=== PATIENT | female | born 1995 | race African-American/Black ===

== ENCOUNTER 2016-10-17 17:59 | Emergency (ER) | payer MEDICAID ==
[~2016-10-17 17:59] MED LIST: MACR100C PO; MACR100C2 PO; METR-1 PO
[2016-10-17 18:29] VITALS: BP 114/57; PULSE 113
[2016-10-17 18:30] VITALS: RESP 20; TEMP 98.9
--- NOTE | 2016-10-17 18:57 | PD ---
HPI Chief Complaint Diarrhea Travel History International Travel<30 Days: No Contact w/Intl Traveler<30Days: No History of Present Illness HPI 21 yo @ 35w2d with STAN 11-19-2016. care with [facility]. Reports uncomplicated . Patient presents with c/o diarrhea for 5 days. Her one year old son had loose stools and is now doing better. She has had decreased appetite with limited oral intake today. She has some back pain and abdominal cramping with loose stools about 5/day occasionally watery. She missed her appointment at the [facility] clinic today and presents for evaluation. No VB, LOF, urinary symptoms. +FM History Past Medical History Narrative Medical MRSA 2009 ETOH abuse/intoxication ETOH related seizure Anxiety STD GC 2012 Tattoo Obstetric History Obstetric History for breech 2013 repeat 2014 SAB @ 18 weeks Past Surgical History Narrative Surgical Per EMR review: MRSA 2009 ETOH abuse/intoxication ETOH related seizure Anxiety STD 2012 Tattoo (Chantale Cota MD R2) Obstetric History Obstetric History for breech 2013 repeat 2014 SAB @ 18 weeks (Chantale Cota MD R2) 2 Family History Family History: Negative Social History Alcohol Use: No Tobacco Use: No Substance Abuse: No Allergies-Medications (Allergen,Severity, Reaction): Coded Allergies: Percocet (Verified Adverse Reaction, Severe, 02/26/16) pt experiences multiple reactions: severe drowsiness, chest tightness, numbness of extremeties, shaking, difficulty breathing *MDRO Multi-Drug Resistant Organism (Unverified Adverse Reaction, Unknown , 02/26/16) MRSA arm wound 2008. MRSA PCR screen negative 12/27/14 and 12/29/14. Cleared per infection control Home Meds Active Scripts Nitrofurantoin Monohydrate Macrocrystals (Macrobid)100 Mg [id number] Mg PO BID #14 CAP Ref 0 Prov:Chantale Cota MD R2 09/05/16 Metronidazole (Flagyl)500 Mg [id number] Mg PO BID 7 Days TAKE UNTIL GONE Prov:Rhona Barba MD 07/02/16 Nitrofurantoin Monohyd Macro (Macrobid)100 Mg [id number] Mg PO BID #14 CAP Ref 0 Prov:Rhona Barba MD 07/02/16 Review of Systems General / Constitutional: No: Fever, Chills HENT: No: Headaches, Lightheadedness Cardiovascular: No: Chest Pain or Discomfort, Palpitations Respiratory: No: Cough, Short of Breath Gastrointestinal: Diarrhea, Abdominal Pain, Loss of Appetite, No: Vomiting Genitourinary: No: Urgency, Frequency, Dysuria, Discharge, Vaginal Bleeding Musculoskeletal: Cramping, Pain (back pain), No: Limited ROM, Weakness Skin: No Rash, No Itching Neurologic: No: Weakness, Syncope, Focal Abnormalities Physical Exam Narrative GENERAL: Well-nourished, well-developed patient. Appears tired SKIN: Warm and dry. HEAD: Normocephalic and atraumatic. EYES: No scleral icterus. No injection or drainage. ENT: No nasal drainage noted. Mucous membranes pink. Airway patent. NECK: Supple, trachea midline. No JVD. CARDIOVASCULAR: Regular rate RESPIRATORY: No accessory muscle use. ABDOMEN/GI: Abdomen soft, non-tender, no rebound, no guarding Gravid TOCO: Rare UC FHT's: Category: I Baseline: 145 Reactive: +accelerations Variability: mod Decels: [-] EXTREMITIES: No cyanosis or edema. BACK: Nontender without obvious deformity. No CVA tenderness. NEUROLOGICAL: Awake and alert. Motor and sensory grossly within normal limits. . Normal speech. Data Data Vital Signs Reviewed: Yes Orders Vital Signs (Adult) .ON ADMISSION (10/17/16 18:29) ^ Labor Status (10/17/16 18:29) Urinalysis - C+S If Indicated (10/17/16 18:29) ^ Non Stress Test (10/17/16 18:29) ^ Hydration (10/17/16 18:29) Labs Laboratory Tests Test 10/17/16 18:30 Urine Color YELLOW Urine Turbidity CLEAR Urine pH 6.5 Urine Specific [place] 1.007 Urine Protein NEG mg/dL Urine Glucose (UA) 70 mg/dL Urine Ketones NEG mg/dL Urine Occult Blood NEG Urine Nitrite NEG Urine Bilirubin NEG Urine Urobilinogen LESS THAN 2.0 MG/DL Urine Leukocyte Esterase MOD Urine RBC LESS THAN 1 /hpf Urine WBC 2 /hpf Urine Squamous Epithelial 2 /hpf Cells Microscopic Urinalysis Comment CULT NOT INDICATED Vital Signs Date Time Temp Pulse Resp B/P Pulse Ox O2 Delivery O2 Flow Rate FiO2 10/17/16 18:30 98.9 10/17/16 18:30 20 10/17/16 18:29 113 114/57 MDM Narrative Course / MDM CAT I FHT TOCO without regular UC, no evidence of PTL VSS, afebrile UA negative Plan Gastroenteritis, stable Oral hydration, tolerated po fluids and crackers D/c home on bland diet F/u with [facility] tomorrow Diagnosis Diagnosis: Primary Impression: Gastrointestinal symptoms during in third trimester, antepartum Additional Impressions: Gastroenteritis 35 weeks gestation of Disposition: 01 DISCHARGE HOME Condition: Good Rhona Barba MD Oct 17, 2016 18:57
[2016-10-17 20:16] LABS: BLOOD, URINE NEG (NEG); COMMENT (UR) CULT NOT INDICATED; CULTURE IF INDICATED CULT NOT INDICATED; GLUCOSE,URINE 70 mg/dL (NEG); KETONE, URINE NEG (NEG); NITRITE,URINE NEG (NEG); PH, URINE 6.5 (5.0-8.5); SQUAMOUS EPITHELIAL CELL URINE 2 /hpf (0-5); URINE COLOR YELLOW (YELLW/STRAW)
== END 2016-10-17 20:52 | disposition home or self-care (01) ==
LOC: HOBED 17:59
DX: K52.9 Noninfective gastroenteritis and colitis, unspecified (principal); Z3A.35 35 weeks gestation of pregnancy; R10.9 Unspecified abdominal pain
CPT/HCPCS: 59025; 81001; 87641

== ENCOUNTER 2016-11-03 15:06 | Emergency (ER) | payer MEDICAID ==
--- NOTE | 2016-11-03 16:02 | PD ---
HPI Chief Complaint Abdominal cramping Date Seen: Nov 03, 2016 Time Seen: 15:30 Travel History International Travel<30 Days: No Contact w/Intl Traveler<30Days: No Known Affected Area: No History of Present Illness HPI 21-year-old 4 para 2 012 at 37+ weeks gestation who reports mild abdominal cramping. She denies any fever chills, bleeding, vaginal discharge, decreased movement, rupture membranes. She receives care at [facility] which she reports has been uncomplicated during this . Intermittent noncompliance with care is noted. Para: 2 : 4 Miscarriage: 1 (18 week IUFD) History Past Medical History Narrative Medical History of alcohol abuse with alcohol intoxication. None this History of MRSA with negative testing in September 2016 Obstetric History Obstetric History 2 prior C-sections. The first was for breech and the second was elective repeat. She had a third which resulted in a 18 week IUFD which was delivered vaginally Past Surgical History Narrative Surgical 2 Family History Family History: Negative Social History Alcohol Use: Yes (history of alcohol-related seizure prior to this ) Tobacco Use: No Substance Abuse: No Allergies-Medications (Allergen,Severity, Reaction): Coded Allergies: Percocet (Verified Adverse Reaction, Severe, 02/26/16) pt experiences multiple reactions: severe drowsiness, chest tightness, numbness of extremeties, shaking, difficulty breathing *MDRO Multi-Drug Resistant Organism (Unverified Adverse Reaction, Unknown , 02/26/16) MRSA arm wound 2008. MRSA PCR screen negative 12/27/14 and 12/29/14. Cleared per infection control Home Meds Active Scripts Nitrofurantoin Monohydrate Macrocrystals (Macrobid)100 Mg [id number] Mg PO BID #14 CAP Ref 0 Prov:Chantale Cota MD R2 09/05/16 Metronidazole (Flagyl)500 Mg [id number] Mg PO BID 7 Days TAKE UNTIL GONE Prov:Rhona Barba MD 07/02/16 Nitrofurantoin Monohyd Macro (Macrobid)100 Mg [id number] Mg PO BID #14 CAP Ref 0 Prov:Rhona Barba MD 07/02/16 Review of Systems Except as stated in HPI: all other systems reviewed are Neg Physical Exam Narrative GENERAL: Well-nourished, well-developed patient. SKIN: Warm and dry. HEAD: Normocephalic and atraumatic. EYES: No scleral icterus. No injection or drainage. ENT: No nasal drainage noted. Mucous membranes pink. Airway patent. NECK: Supple, trachea midline. No JVD. CARDIOVASCULAR: Regular rate and rhythm without murmurs, gallops, or rubs. RESPIRATORY: Breath sounds equal bilaterally. No accessory muscle use. BREASTS: Bilateral exam showed no masses , no retractions, no nipple discharge. ABDOMEN/GI: Abdomen soft, non-tender, bowel sounds present, no rebound, no guarding Gravid to [-] weeks size Fundal Height: [-40] GENITOURINARY: External Genitalia: intact and normal in appearance BUS glands: [-Negative] Cervix: [-] Dilatation: [Closed-] Effacement: [-Long] Station: [-High] Presentation: [-] Membranes: [intact ] Uterine Contractions: [Irregular mild-] FHT's: Category: [-1] Baseline: [-] Reactive: [Yes-] Variability: [-] Decels: [-] EXTREMITIES: No cyanosis or edema. BACK: Nontender without obvious deformity. No CVA tenderness. NEUROLOGICAL: Awake and alert. Motor and sensory grossly within normal limits. Five out of 5 muscle strength in all muscle groups. Normal speech. Data Data Vital Signs Reviewed: Yes MDM Medical Record Reviewed: Yes Narrative Course / MDM Assessment: 37+ week intrauterine with uterine irritability Plan: Hydration The patient has also missed her preoperative visit for repeat and this was completed today including counseling regarding the risks benefits and alternatives to . She was scheduled for November 13. Diagnosis Diagnosis: Primary Impression: 37 weeks gestation of Additional Impression: Gastrointestinal symptoms during in third trimester, antepartum Disposition: 01 DISCHARGE HOME Brandan Mahoney MD Nov 03, 2016 16:02
--- NOTE | 2016-11-03 16:25 | PD.CONS ---
HPI Chief Complaint consultation Date Seen: Nov 03, 2016 Time Seen: 16:12 Travel History International Travel<30 Days: No Contact w/Intl Traveler<30Days: No Known Affected Area: No History of Present Illness HPI 21-year-old 4 para 2 012 at 37+ weeks gestation who reports having missed her consultation appointment for . She receives care at [facility] which she reports has been uncomplicated during this . Intermittent noncompliance with care is noted. She reports her last menstrual period was early January and states that her due date is the 19 of November. She reports having had an ultrasound in [facility] but she is uncertain where. This information is not recorded on her pink card from [facility]. Para: 2 : 4 Miscarriage: 1 History Past Medical History Narrative Medical History of MRSA with negative nasal testing in September 2016 History of alcohol abuse/intoxication with associated seizure prior to this Obstetric History Obstetric History Her first was delivered by for breech Second was repeat at term Third was 18 week IUFD delivered vaginally Rh+, GC chlamydia negative, rubella immune, HIV and hep B negative, GBS negative , no 1 hour Glucola was performed Past Surgical History Narrative Surgical 2 Family History Family History: Negative Social History Alcohol Use: Yes (prior to this , history of alcohol intoxication associated seizure) Tobacco Use: No Substance Abuse: No Allergies-Medications (Allergen,Severity, Reaction): Coded Allergies: Percocet (Verified Adverse Reaction, Severe, 02/26/16) pt experiences multiple reactions: severe drowsiness, chest tightness, numbness of extremeties, shaking, difficulty breathing *MDRO Multi-Drug Resistant Organism (Unverified Adverse Reaction, Unknown , 02/26/16) MRSA arm wound 2008. MRSA PCR screen negative 12/27/14 and 12/29/14. Cleared per infection control Home Meds Active Scripts Nitrofurantoin Monohydrate Macrocrystals (Macrobid)100 Mg [id number] Mg PO BID #14 CAP Ref 0 Prov:Chantale Cota MD R2 09/05/16 Metronidazole (Flagyl)500 Mg [id number] Mg PO BID 7 Days TAKE UNTIL GONE Prov:Rhona Barba MD 07/02/16 Nitrofurantoin Monohyd Macro (Macrobid)100 Mg [id number] Mg PO BID #14 CAP Ref 0 Prov:Rhona Barba MD 07/02/16 Review of Systems Except as stated in HPI: all other systems reviewed are Neg Physical Exam Narrative GENERAL: Well-nourished, well-developed patient. SKIN: Warm and dry. HEAD: Normocephalic and atraumatic. EYES: No scleral icterus. No injection or drainage. ENT: No nasal drainage noted. Mucous membranes pink. Airway patent. NECK: Supple, trachea midline. No JVD. CARDIOVASCULAR: Regular rate and rhythm without murmurs, gallops, or rubs. RESPIRATORY: Breath sounds equal bilaterally. No accessory muscle use. BREASTS: Bilateral exam showed no masses , no retractions, no nipple discharge. ABDOMEN/GI: Abdomen soft, non-tender, bowel sounds present, no rebound, no guarding Gravid to [-] weeks size Fundal Height: [40-] GENITOURINARY: External Genitalia: intact and normal in appearance BUS glands: [-] Cervix: [-] Dilatation: [Closed] Effacement: [Long-] Station: [High-] Presentation: [-] Membranes: [intact] Uterine Contractions: [Mild irregular-] FHT's: Category: [1-] Baseline: [-] Reactive: [Yes] Variability: [-] Decels: [-] EXTREMITIES: No cyanosis or edema. BACK: Nontender without obvious deformity. No CVA tenderness. NEUROLOGICAL: Awake and alert. Motor and sensory grossly within normal limits. Five out of 5 muscle strength in all muscle groups. Normal speech. Data Data Vital Signs Reviewed: Yes MDM Medical Record Reviewed: Yes Narrative Course / MDM Assessment: 37+ week intrauterine with 2 prior section and desiring elective repeat. She has had spotty care with this and there is some question regarding how her EDC was established. Plan: We reviewed the risks benefits and alternatives of repeat section and she consents to the surgery. I have instructed her that we will need to see documentation of her ultrasound which she can get when she has her appointment on Friday of this week. She is tentatively planned for repeat on November 13. Brandan Mahoney MD Nov 03, 2016 16:25
[2016-11-03 16:54] LABS: BACTERIA, URINE RARE /hpf; BLOOD, URINE NEG (NEG); COMMENT (UR) CULT NOT INDICATED; CULTURE IF INDICATED CULT NOT INDICATED; GLUCOSE,URINE NEG (NEG); HYALINE CAST, URINE 1 /lpf (RARE); KETONE, URINE NEG (NEG); MUCUS URINE FEW /lpf (OCC); NITRITE,URINE NEG (NEG); PH, URINE 6.5 (5.0-8.5); SQUAMOUS EPITHELIAL CELL URINE 3 /hpf (0-5); URINE COLOR YELLOW (YELLW/STRAW)
== END 2016-11-03 20:35 | disposition home or self-care (01) ==
LOC: HOBED 15:06
DX: O26.893 Other specified pregnancy related conditions, third trimester (principal); R19.8 Other specified symptoms and signs involving the digestive system and abdomen; R10.9 Unspecified abdominal pain; Z86.14 Personal history of Methicillin resistant Staphylococcus aureus infection; O34.219 Maternal care for unspecified type scar from previous cesarean delivery; Z3A.37 37 weeks gestation of pregnancy
CPT/HCPCS: 59025; 81001

== ENCOUNTER 2016-11-05 15:46 | Inpatient (IN) | payer MEDICAID ==
[~2016-11-05] VITALS: Ht 160 cm; Wt 74.8 kg
[2016-11-13] VITALS (23 sets, daily range): BP systolic 109–127; BP diastolic 66–76; PULSE 62–97; RESP 16–18; TEMP 97.5–98.6; O2SAT 96–100
[2016-11-13] MEDS ORDERED: LACTATED RINGER'S 1000 ML INJ 1,000 ML IV ONE (08:31)
[2016-11-13 08:57] LABS: BLOOD, URINE NEG (NEG); COMMENT (UR) CULT NOT INDICATED; CULTURE IF INDICATED CULT NOT INDICATED; GLUCOSE,URINE NEG (NEG); KETONE, URINE 40 mg/dL (NEG); MUCUS URINE FEW /lpf (OCC); NITRITE,URINE NEG (NEG); PH, URINE 6.5 (5.0-8.5); SQUAMOUS EPITHELIAL CELL URINE 3 /hpf (0-5); URINE COLOR YELLOW (YELLW/STRAW)
[2016-11-13 08:58] LABS: AUTOMATED NEUTROPHIL # 5.3 TH/MM3 (1.8-7.7); BASOPHIL % 0.3 % (0.0-2.0); EOSINOPHIL % 0.5 % (0.0-4.0); LYMPH % 16.5 % (9.0-44.0); LYMPHOCYTE # 1.2 TH/MM3 (1.0-4.8); MEAN CELL VOLUME 62.5 FL (80.0-100.0); MEAN CORPUSCULAR HEMOGLOBIN 19.2 PG (27.0-34.0); MEAN CORPUSCULAR HGB CONC 30.7 % (32.0-36.0); MONO % 11.8 % (0.0-8.0); NEUT % 70.9 % (16.0-70.0); PLATELET COUNT 179 TH/MM3 (150-450); RED BLOOD COUNT 4.47 MIL/MM3 (4.00-5.30); RED CELL DISTRIBUTION WIDTH 18.5 % (11.6-17.2); WHITE BLOOD COUNT 7.4 TH/MM3 (4.0-11.0)
[2016-11-13 08:59] LABS: HEMO FLAGS AUTO DIFF
[2016-11-13] MEDS ORDERED: LACTATED RINGER'S 1000 ML INJ 1,000 ML IV SCH (09:01)
--- NOTE | 2016-11-13 09:09 | HHI.HP ---
HPI Chief Complaint scheduled c/s at 39/1 Date Seen: Nov 13, 2016 Time Seen: 09:15 Travel History International Travel<30 Days: No Contact w/Intl Traveler<30Days: No History of Present Illness HPI 21y @39/1, EDC 11/19/16 who presents for scheduled delivery at 10:30am. OBGYN care at [facility]. GBS unknown. Hepatitis panel neg 05/2016. Believes she had clear ROM this morning at 7am while walking around home- soaked her underwear- amnisure was positive. Denies vaginal bleeding or contractions. Denies headache, vision changes, SOB worse than baseline during , chest pain, palpitations, nausea, vomiting, or calf pain. +Peripheral edema, slowly worsening this past week. Para: 2 : 4 Miscarriage: 1 : 0 History Past Medical History Narrative Medical Hx MRSA R forearm, 2008, multiple subsequent negative nasal swabs 2014 Hx of "breathing problems" but denies formal dx of asthma Hx heavy drinking and one alcohol-induced seizure- no maintenance meds Obstetric History Obstetric History 2014, c/s, breech presentation 2014, c/s, elective repeat 2016- 18w IUFD Past Surgical History Narrative Surgical c/s x2 Family History Narrative Family History FHx significant for diabetes: mother, aunt, grandmother Deneis FHx bleeding disorder or other known heritable medical conditions. 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 Friend is taking care of her two children right now. career development consultant is primary barrier to accessing care. Alcohol Use: No (hx alcohol, quit 2015 w/o formal support group, pt minimizes this dx) Tobacco Use: No Substance Abuse: No Allergies-Medications (Allergen,Severity, Reaction): Coded Allergies: Percocet (Verified Allergy, Severe, 11/13/16) "throat closes up and difficulty breathing" - encountered 2013 at first c/s *MDRO Multi-Drug Resistant Organism (Verified Adverse Reaction, Unknown, ) MRSA arm wound 2008. MRSA PCR screen negative 12/27/14 and 12/29/14. Cleared per infection control Home Meds Discontinued Scripts Nitrofurantoin Monohydrate Macrocrystals (Macrobid)100 Mg [id number] Mg PO BID #14 CAP Ref 0 Prov:Chantale Cota MD R2 09/05/16 Metronidazole (Flagyl)500 Mg Ocu033 Mg PO BID 7 Days TAKE UNTIL GONE Prov:Rhona Barba MD 07/02/16 Nitrofurantoin Monohyd Macro (Macrobid)100 Mg [id number] Mg PO BID #14 CAP Ref 0 Prov:Rhona Barba MD 07/02/16 Review of Systems Except as stated in HPI: all other systems reviewed are Neg Physical Exam Narrative GENERAL: Well-nourished, well-developed gravid female in nad SKIN: Warm and dry. HEAD: Normocephalic and atraumatic. EYES: No scleral icterus. No injection or drainage. ENT: No nasal drainage noted. Mucous membranes pink. Airway patent. NECK: Supple, trachea midline. No JVD. CARDIOVASCULAR: Regular rate and rhythm without murmurs, gallops, or rubs. RESPIRATORY: Breath sounds equal bilaterally. No accessory muscle use. GI: Gravid abdomen GENITOURINARY: External Genitalia: intact and normal in appearance. Stable 1cm bump, appears like benign scar tissue Cervix: closed, posterior, high Presentation: vertex Membranes: ruptured Uterine Contractions: q2-4 minutes FHT's: Category: 1 Baseline: 120 Reactive: Yes Variability: Moderate Decels: No EXTREMITIES: +2 peripheral edema BACK: Nontender without obvious deformity. Mild midline lumbar backpain NEUROLOGICAL: Motor and sensory grossly within normal limits. 2+ patellar reflexes R > L. Data Data Vital Signs Reviewed: Yes Orders Admit To Inpatient (11/13/16 ) Code Status (11/13/16 08:31) Vital Signs (Adult) .ON ADMISSION (11/13/16 08:31) Activity Oob Ad Suzie (11/13/16 08:31) ^ Heart (11/13/16 08:31) Urinary Catheter Management RACQUEL.Q8H (11/13/16 08:31) ^ Preps (11/13/16 08:31) Scd / Leif / Foot Pump RACQUEL.QSHIFT (11/13/16 08:31) ^ Ultrasound For Locatio (11/13/16 08:31) Diet Npo (11/13/16 Breakfast) Lactated Ringer's 1000 Ml Inj (Lr 1000 M (11/13/16 08:31) Lactated Ringer's 1000 Ml Inj (Lr 1000 M (11/13/16 09:01) Cefazolin 2 Gm Premix (Ancef 2 Gm Premix (11/13/16 09:45) Citric Acid-Sodium Citrate Liq (Bicitra (11/13/16 10:15) Type And Screen (11/13/16 08:31) Complete Blood Count With Diff (11/13/16 08:31) Urinalysis - C+S If Indicated (11/13/16 08:31) Inpatient Certification (11/13/16 ) Specimen To Be Collected PRN (11/13/16 08:31) Abo/Rh Blood Type (11/13/16 08:35) Assessment/Plan Problem List: (1) Intrauterine (2) Delivery by elective section (3) Hx MRSA infection (4) Allergy to opioid analgesic (5) Shortness of breath Assessment and Plan 21y @39/1, EDC 11/19/16, who presents for scheduled delivery at 10:30am who presents with closed cervix, but positive amnisure and clear SROM at 7am 1. Intrauterine , Hx C/s -Admit for scheduled c/s -CBC, U/A pending -Routine PROP orders for antibiotics and pain management -Category I tracing -Maternal vital signs reassuring -Hepatitis panel 05/2016 negative, HIV negative, need chart review for RPR status and 2. Hx MRSA infection 2008 -Multiple negative nasal swabs after event- no contact precautions required 3. SOB -Continue to monitor -Albuterol PRN after delivery 4. Hx alcoholism with isolated alcohol-withdrawal seizure (2014) -Quit 2015, no repeat seizures, no maintenance medications, -Low suspicion for risk of withdrawal seizure, but will place Ativan PRN seizure on board 5. Allergy to opioid analgesic -Will perform chart review to verify veracity -As of now, do not give Percocet secondary to presumed allergy SDW: Dr. Ga Discharge Planning 2-3 days pending VSS and pain control after c/s Lety Perez MD R1 Nov 13, 2016 09:09
--- NOTE | 2016-11-13 09:15 | HHI.HP ---
HPI Chief Complaint She is a scheduled for today with the membranes ruptured this morning Date Seen: Nov 13, 2016 Travel History International Travel<30 Days: No Contact w/Intl Traveler<30Days: No Known Affected Area: No History of Present Illness HPI This patient is 21-year-old white female A1 previous 2 at 39 wks who presents with spontaneous rupture membranes this morning. As it happens she's also scheduled for today for repeat at 39 weeks and received care at [facility]. The heart rate tracing is reactive she is richard irregularly, her amnio sure was positive, she denies bleeding at this time Para: 2 : 4 Miscarriage: 1 History Past Medical History Narrative Medical Positive for MRSA and in her arm in 2013 with subsequent negative swabs since History of some type of "breathing problem"probably asthma Obstetric History Obstetric History 2 previous C-sections 1 loss Past Surgical History Narrative Surgical 2 previous C-sections Social History Narrative Social History Has history of alcoholism but says she is not drinking now Alcohol Use: Yes Tobacco Use: No Substance Abuse: No Allergies-Medications (Allergen,Severity, Reaction): Coded Allergies: Percocet (Verified Adverse Reaction, Severe, 02/26/16) pt experiences multiple reactions: severe drowsiness, chest tightness, numbness of extremeties, shaking, difficulty breathing *MDRO Multi-Drug Resistant Organism (Unverified Adverse Reaction, Unknown , 02/26/16) MRSA arm wound 2008. MRSA PCR screen negative 12/27/14 and 12/29/14. Cleared per infection control Home Meds Active Scripts Nitrofurantoin Monohydrate Macrocrystals (Macrobid)100 Mg [id number] Mg PO BID #14 CAP Ref 0 Prov:Chantale Cota MD R2 09/05/16 Metronidazole (Flagyl)500 Mg [id number] Mg PO BID 7 Days TAKE UNTIL GONE Prov:Rhona Barba MD 07/02/16 Nitrofurantoin Monohyd Macro (Macrobid)100 Mg Syj321 Mg PO BID #14 CAP Ref 0 Prov:Rhona Barba MD 07/02/16 Review of Systems General / Constitutional: No: Fever, Weight Gain, Chills, Other Eyes: No: Diploplia, Blurred Vision, Visual changes, Pain, Photophobia HENT: No: Headaches, Vertigo, Lightheadedness Cardiovascular: No: Irregular Rhythm, Chest Pain or Discomfort, Palpitations, Tachycardia, Syncope, Varicosities, Edema, Cyanosis Respiratory: No: Cough, Short of Breath, Other Gastrointestinal: No: Nausea, Vomiting, Diarrhea Genitourinary: No: Decreased Urinary Output, Oliguria Musculoskeletal: No: Limited ROM, Weakness, Cramping, Edema, Pain Skin: No Rash, No Itching, No Dryness, No Lumps, No Change in Pigmentation, No Change in Nails, No Alopecia, No Lesions Neurologic: No: Weakness, Dizziness, Syncope, Focal Abnormalities, Coordination Problem, Headache, Slurred Speech, Seizures Psychiatric: No: Depression, Suicidal Ideations, Homicidal Ideation Endocrine: No: Heat Intolerance, Cold Intolerance, Polydipsia, Polyuria, Other Physical Exam Narrative GENERAL: Well-nourished, well-developed patient. SKIN: Warm and dry. HEAD: Normocephalic and atraumatic. EYES: No scleral icterus. No injection or drainage. ENT: No nasal drainage noted. Mucous membranes pink. Airway patent. NECK: Supple, trachea midline. No JVD. CARDIOVASCULAR: Regular rate and rhythm without murmurs, gallops, or rubs. RESPIRATORY: Breath sounds equal bilaterally. No accessory muscle use. BREASTS: Bilateral exam showed no masses , no retractions, no nipple discharge. ABDOMEN/GI: Abdomen soft, non-tender, bowel sounds present, no rebound, no guarding Gravid to [-36] weeks size Fundal Height: [36 cm-] GENITOURINARY: External Genitalia: intact and normal in appearance BUS glands: [-] Cervix: [-] Dilatation: [-] Closed Effacement: [-] Thick Station: [-3] Presentation: [vtx-] Membranes: [ ruptured] positive amnio sure Uterine Contractions: [Irregular-] FHT's: Category: [-1] Baseline: [144-] Reactive: [-yes] Variability: [-mod] Decels: [none-] EXTREMITIES: No cyanosis or edema. BACK: Nontender without obvious deformity. No CVA tenderness. NEUROLOGICAL: Awake and alert. Motor and sensory grossly within normal limits. Five out of 5 muscle strength in all muscle groups. Normal speech. Data Data Orders Admit To Inpatient (11/13/16 ) Code Status (11/13/16 08:31) Vital Signs (Adult) .ON ADMISSION (11/13/16 08:31) Activity Oob Ad Suzie (11/13/16 08:31) ^ Heart (11/13/16 08:31) Urinary Catheter Management RACQUEL.Q8H (11/13/16 08:31) ^ Preps (11/13/16 08:31) Scd / Leif / Foot Pump RACQUEL.QSHIFT (11/13/16 08:31) ^ Ultrasound For Locatio (11/13/16 08:31) Diet Npo (11/13/16 Breakfast) Lactated Ringer's 1000 Ml Inj (Lr 1000 M (11/13/16 08:31) Lactated Ringer's 1000 Ml Inj (Lr 1000 M (11/13/16 09:01) Cefazolin 2 Gm Premix (Ancef 2 Gm Premix (11/13/16 09:45) Citric Acid-Sodium Citrate Liq (Bicitra (11/13/16 10:15) Type And Screen (11/13/16 08:31) Complete Blood Count With Diff (11/13/16 08:31) Urinalysis - C+S If Indicated (11/13/16 08:31) Inpatient Certification (11/13/16 ) Specimen To Be Collected PRN (11/13/16 08:31) Abo/Rh Blood Type (11/13/16 08:35) Assessment/Plan Assessment and Plan This patient is a 21-year-old black female A1 previous 2 now here for repeat and she rupture membranes this morning at home spontaneously. Her amnio sure is positive that at this time she is richard irregularly and cervix is still closed heart rate tracing is reactive. She is followed by [facility] and the as mentioned the surgery is scheduled for today Plan is to admit patient and proceed with her repeat as scheduled. Roland Ga II, MD Nov 13, 2016 09:15
[2016-11-13] MEDS ORDERED: ceFAZolin 2 GM PREMIX 50 ML IV SCH (09:45)
[2016-11-13 10:01] LABS: OVALOCYTES 1+ (NORMAL)
[2016-11-13 10:02] LABS: SCAN/DIFF AUTO DIFF CONFIRMED; TEARDROP RBCS 1+ (NORMAL)
[2016-11-13] MEDS ORDERED: CITRIC ACID-SODIUM CITRATE LIQ 30 ML UDC PO SCH (10:15)
[2016-11-13] MEDS ORDERED: MORPHINE SULFATE PF 5 MG/10 ML VIAL ONE (10:44)
[2016-11-13] MEDS ORDERED: ePHEDrine/NS 25 MG/5 ML SYR ONE (10:45)
[2016-11-13] MEDS ORDERED: OXYTOCIN 10 UNIT/ML AMP ONE (10:45)
[2016-11-13] MEDS ORDERED: ONDANSETRON HCL 4 MG/2 ML VIAL ONE (10:45)
--- NOTE | 2016-11-13 11:40 | PD.OP ---
Operative Report Date of Surgery: Nov 13, 2016 Preoperative Diagnosis: Postoperative Diagnosis: Procedure: Repeat Surgeon: Rhona Barba [employer] Developer(s): Ornamental Ironworker Operation and Findings: OPERATIVE REPORT PREOPERATIVE DIAGNOSIS: Term @ 39 weeks Prior PROM POSTOPERATIVE DIAGNOSIS: Same as above PROCEDURE(S) PERFORMED: Repeat Low Transverse Uterine Incision Lysis of Adhesions SURGEON: Rhona Barba MD DISTRIBUTION MANAGER(S): Sticker On ANESTHESIA: Spinal SPECIMEN(S) TO LAB: Cord blood EBL: 500mL UOP: clear 100ml IVF: Crystalloid 2500ml DRAINS: [place] DRESSINGS: ABD dressing COMPLICATIONS: None apparent INDICATIONS: Repeat scheduled. Patient presented this morning with ruptured membranes without contractions. OPERATIVE FINDINGS: Normal uterus, ovaries, tubes. Uncomplicated procedure DESCRIPTION: The risks, benefits, indications and alternatives of the procedure were reviewed with the patient and informed consent was obtained. The patient was taken to the operating room where spinal anesthesia was found to be adequate. She was prepared and draped in the normal sterile fashion in the dorsal supine position with a leftward tilt. A Pfannenstiel skin incision was made with the scalpel over her prior incision. The incision was then carried through the underlying layer of fascia with the Bovie. The fascia was incised in the midline and the incision extended laterally with the Liang scissors. The superior aspect of the fascial incision was grasped with the Travis clamps, elevated, and the underlying rectus muscles dissected off bluntly and using the Bovie. In a similar fashion the inferior aspect of this incision was grasped and the rectus muscles dissected off of the fascia. The rectus muscles were in the midline and the peritoneum entered bluntly over a filmy area. The bladder blade was placed and a bladder flap made with the Metzenbaum scissors. A bladder flap created digitally with replacement of the bladder blade. The lower uterine segment was incised in a transverse fashion with the scalpel. The uterine incision was extended laterally manually. Clear fluid was noted. The infants head and shoulders were delivered without difficulty. The cord was double clamped and cut. The infant was handed to the waiting pediatric team. Cord blood was obtained. The placenta was then removed manually, was intact and grossly normal. The uterus cleared of all clots and debris. The uterine incision was closed with a running, locking layer of 0-Chromic. Hemostasis was noted. The uterus was returned to the abdomen, inspected again and noted to be hemostatic. There were some brittaney adhesions to the anterior abdominal wall which were lysed. The gutters were irrigated and cleared of all clots and debris. The peritoneal fascia and muscle bellies were hemostatic. The fascia was re-approximated from the left to the right corner in a running fashion with 0-Vicryl. The subcutaneous space was irrigated and hemostatic. The peritoneum was reapproximated with 2-0 Chromic. The skin approximated with 3-0 Monocryl. The patient tolerated the procedure well. Sponge, lap and needle counts were correct x 2. Ancef 2gm IVPB was given prior to the procedure. Pitocin 30 units in her regular IV fluids was given after placenta delivery. The patient was taken to the recovery unit in good condition. There were no operative complications. Rhona Barba MD Department of Obstetrics and Gynecology Rhona Barba MD Nov 13, 2016 11:40
[2016-11-13] MEDS ORDERED: MIDAZOLAM HCL 2 MG/2 ML VIAL ONE (11:43)
[2016-11-13] MEDS ORDERED: SODIUM CHLORIDE 0.9% FLUSH 5 ML FLUSH IV PRN (11:45)
[2016-11-13] MEDS ORDERED: ONDANSETRON HCL 4 MG/2 ML VIAL IV PUSH PRN (11:45)
[2016-11-13] MEDS ORDERED: SIMETHICONE 80 MG CHEWABLE TAB PO PRN (11:45)
[2016-11-13] MEDS ORDERED: OXYTOCIN 30 UNITS-500ML PREMIX 500 ML IV ONE (11:45)
[2016-11-13] MEDS ORDERED: NALOXONE HCL 0.4 MG/ML AMP IV PRN (12:15)
[2016-11-13] MEDS ORDERED: KETOROLAC TROMETHAMINE 30 MG/ML (IVP) VIAL ONE (12:17)
[2016-11-13] MEDS: KETOROLAC TROMETHAMINE 30 MG/ML (IVP) VIAL IV PUSH SCH ×2 (12:24→17:38)
[2016-11-13] MEDS ORDERED: OXYTOCIN 30 UNITS-500ML PREMIX 500 ML ONE (12:31)
[2016-11-13] MEDS ORDERED: MISOPROSTOL 200 MCG TAB ONE (12:57)
[2016-11-13] MEDS ORDERED: MORPHINE SULFATE 30 MG/30 ML PCA IV SCH (13:00)
[2016-11-13] MEDS ORDERED: PCA - TOTAL MG MORPHINE DELIVERED PER SHIFT SCH (14:00)
[2016-11-13 14:29] LABS: MEAN CORPUSCULAR HGB CONC 29.2 % (32.0-36.0)
[2016-11-13 17:17] LABS: HEMATOCRIT 28.7 % (35.0-46.0); MEAN CELL VOLUME 64.1 FL (80.0-100.0); MEAN CORPUSCULAR HEMOGLOBIN 18.7 PG (27.0-34.0); PLATELET COUNT 172 TH/MM3 (150-450); RED BLOOD COUNT 4.48 MIL/MM3 (4.00-5.30); RED CELL DISTRIBUTION WIDTH 18.2 % (11.6-17.2); WHITE BLOOD COUNT 12.9 TH/MM3 (4.0-11.0)
[2016-11-13 17:21] LABS: REVIEW FLAG FINAL
[2016-11-13] MEDS: LACTATED RINGER'S 1000 ML INJ 1,000 ML IV SCH ×2 (17:46→21:30)
[2016-11-13] MEDS ORDERED: SODIUM CHLORIDE 0.9% FLUSH 5 ML FLUSH IV SCH (21:00)
[2016-11-13] MEDS ORDERED: OXYTOCIN 30 UNITS-500ML PREMIX 500 ML IV PRN (21:45)
[2016-11-14] VITALS (10 sets, daily range): BP systolic 105–128; BP diastolic 53–75; PULSE 68–100; RESP 16–18; TEMP 98.3–99.2
[2016-11-14] MEDS: KETOROLAC TROMETHAMINE 30 MG/ML (IVP) VIAL IV PUSH SCH ×2 (01:51→07:19)
[2016-11-14 06:52] LABS: AUTOMATED NEUTROPHIL # 8.3 TH/MM3 (1.8-7.7); BASOPHIL % 0.3 % (0.0-2.0); EOSINOPHIL % 0.2 % (0.0-4.0); LYMPH % 10.9 % (9.0-44.0); LYMPHOCYTE # 1.2 TH/MM3 (1.0-4.8); MEAN CELL VOLUME 63.1 FL (80.0-100.0); MEAN CORPUSCULAR HEMOGLOBIN 19.1 PG (27.0-34.0); MEAN CORPUSCULAR HGB CONC 30.2 % (32.0-36.0); MONO % 13.6 % (0.0-8.0); PLATELET COUNT 157 TH/MM3 (150-450); RED CELL DISTRIBUTION WIDTH 18.4 % (11.6-17.2); WHITE BLOOD COUNT 11.1 TH/MM3 (4.0-11.0)
[2016-11-14 07:07] LABS: HEMO FLAGS AUTO DIFF
[2016-11-14 07:11] LABS: HEMATOCRIT 21.4 % (35.0-46.0)
[2016-11-14 08:13] LABS: KERATOCYTES OCC (NORMAL); SCAN/DIFF AUTO DIFF CONFIRMED; TEARDROP RBCS 1+ (NORMAL)
[2016-11-14 08:14] LABS: PLATELET ESTIMATE SMEAR NORMAL (NORMAL); PLATELET MORPHOLOGY NORMAL (NORMAL)
[2016-11-14] MEDS ORDERED: oxyCODONE/ACETAMINOPHEN 5 MG/325 MG TAB PO PRN (08:15)
--- NOTE | 2016-11-14 08:27 | HHI.OB ---
Subjective Post Operative Day: 1 Remarks POD1 for scheduled repeat c/s. Pain not well-controlled with Toradol. Eating with some nausea. Voiding and ambulating without difficulty. Reports flatulence, denies BM. Encouraged OOB. Pt would like to formula feed. Was counseled about , willing to discuss pumping with engagement quality consultant. Undecided on control. Depo shot vs other. Denies fevers/ chills, SOB/chest pain, calf pain. Asymptomatic with anemia- denies syncope, SOB, changes in vision with standing, or palpitations. (Lety Perez MD R1) Objective Vitals/I&O Vital Signs Date Time Temp Pulse Resp B/P Pulse Ox O2 Delivery O2 Flow Rate FiO2 11/13/16 18:37 16 11/13/16 17:35 17 11/13/16 16:25 18 11/13/16 15:05 98.2 64 18 120/69 11/13/16 14:12 62 100 11/13/16 14:00 64 18 120/72 100 11/13/16 13:46 62 18 118/72 99 11/13/16 13:34 98.6 11/13/16 13:31 67 18 99 11/13/16 13:31 118/68 11/13/16 13:20 97.5 11/13/16 13:15 62 18 119/69 96 11/13/16 13:07 99 11/13/16 13:07 68 18 109/76 11/13/16 12:45 77 18 122/73 99 11/13/16 12:30 65 126/71 98 11/13/16 12:29 18 11/13/16 12:15 86 126/70 99 11/13/16 12:12 18 11/13/16 12:04 127/70 11/13/16 11:57 97 18 114/67 96 11/13/16 11:51 127/66 11/13/16 09:45 18 11/13/16 09:44 71 116/67 11/13/16 08:30 86 115/76 (Lety Perez MD R1) Result Diagram: 11/14/16 0608 Objective Remarks GENERAL: Adult AA female in NAD HEENT: PERRL. MMM. CV: RRR, without murmurs. RESP: Breathing well on RA. Lungs CTAB. GI: Soft, NTTP. Incision: Clean, dry and intact. No discharge. No erythema. Fundus: Firm, non-tender inferior to umbilicus. : Moderate bleeding. Stable 1 cm benign appearing scar tissue L external labia. BACK: Nontender without obvious deformity NEURO: Motor and sensory grossly within normal limits PSYCH: Affect flat. Minimally verbal (Tired vs post blues?) Medications and IVs Current Medications Medications (Trade) Dose Ordered Sig/Clyde Route Start Time Stop Time Status Last Admin (Lr 1000 ml Inj) 1,000 ml @ 100 mls/hr Q10H IV 11/13/16 16:41 11/14/16 12:40 11/13/16 21:30 (NS Flush) 2 ml BID IV 11/13/16 21:00 (NS Flush) 2 ml UNSCH PRN IV 11/13/16 11:45 11/14/16 07:24 (Mylicon Chew) 80 mg QID PRN PO 11/13/16 11:45 (Motrin) 600 mg Q6H PRN PO 11/14/16 11:45 (Sarah-Colace) 2 tab Q12H PRN PO 11/13/16 11:45 (M-M-R Ii Inj) 0.5 ml ONCE ONCE SQ 11/14/16 16:00 11/14/16 16:01 (Boostrix Inj) 0.5 ml ONCE ONCE IM 11/14/16 16:00 11/14/16 16:01 (Zofran Inj) 4 mg Q6H PRN IV PUSH 11/13/16 11:45 11/13/16 17:30 (Percocet 5-325 Mg) 1 tab Q4H PRN PO 11/14/16 08:15 (Lety Perez MD R1) Assessment/Plan Problem List: (1) Intrauterine (2) Delivery by elective section (3) History of alcoholism (4) Hx MRSA infection (5) Allergy to opioid analgesic Assessment and Plan POD1: 21y @39/1 presenting for scheduled repeat c/s, found in active labor with SROM. 1. Delivery by elective section, hx -Continue routine care -Motrin and Percocet PRN pain. Miralax for Bowel Reg. PRN Benadryl and PRN Zofran on board. -Encouraged OOB. Advised pelvic rest for 6 wks -Follow up OB appointment in 1 week with [facility] -Formula feeding. Would consider supplementing with pumped breast milk. end user consultant consulted 11/14 -Mom blood type O+, Rhogam not indicated -RPR non-reactive 2. Microcytic Anemia -Microcytic anemia on admission, decreased <7 s/p -Pt uncertain if will accept 2 units pRBCs- told resident physician would accept , told attending still thinking about it -Will put in orders to transfuse 2 units pRBC- if pt refuses, please call team -Start ferrous sulfate 325mg BID, continue at discharge -Please drapery counselor pt that NORMAL to turn stool ivan color and cause mild constipation. Treat constipation with daily Miralax, PRN. Recommend outpatient follow up with rpt CBC in 3 months and further outpt testing 3. Hx MRSA infection 2008 -Multiple negative nasal swabs after event- no contact precautions required 4. Hx alcoholism with isolated alcohol-withdrawal seizure (2014) -Pt minimizes this diagnoses -Quit 2015, no repeat seizures, no maintenance medications, low suspicion for risk of withdrawal seizure 5. Reported allergy to opioid analgesic -First placed in EMR 09/02/15 during visit for demise. Side effects of drowsiness and chest tightness appear more consistent with adverse effects than true allergy. -Discontinue GARDENER FLORIST and toradol (s/p 24 hours CLYDE use) -Start Oxycodone 5/325 q4h PRN pain 3-10 -Benedryl 25mg PO PRN hives/anaphylaxis DW: Dr Barba, Dr. Jeannie Hampton Discharge Planning POD1. 1-2 days pending VSS and control. Likely tomorrow. (Lety Perez MD R1) Attending Attestation POD #1 s/p repeat antepartum anemia 8.5 with post-op Hgb 6.4 Offered blood transfusion, patient agrees with plan of care Patient seen and examined with Dr. Hampton and Dr. Perez (Rhona Barba MD) Lety Perez MD R1 Nov 14, 2016 08:27 Rhona Barba MD Nov 14, 2016 10:10
[2016-11-14] MEDS ORDERED: SODIUM CHLOR 0.9% 250 ML INJ 250 ML IV ONE (09:00)
[2016-11-14] MEDS ORDERED: diphenhydrAMINE HCL 25 MG CAP PO PRN ×2 (09:00→13:30)
[2016-11-14] MEDS ORDERED: ACETAMINOPHEN 325 MG TAB PO PRN ×2 (09:00→13:30)
[2016-11-14] MEDS: FERROUS SULFATE 325 MG (65 MG ELEMENTAL IRON) TAB PO SCH ×2 (11:46→16:35)
[2016-11-14] MEDS ORDERED: DIPHTH/TETANUS/ACEL PERTUSSIS (BOOSTER) 0.5 ML VIAL/PFS IM ONE (16:00)
[2016-11-14] MEDS ORDERED: MEASLES, MUMPS, RUBELLA VACCINE 0.5 ML VIAL SQ ONE (16:00)
[2016-11-14] MEDS: IBUPROFEN 600 MG TAB PO PRN (16:35)
[2016-11-14] MEDS: ACETAMINOPHEN/HYDROcodone 325 MG/5 MG TAB PO PRN ×2 (16:35→21:19)
[2016-11-14] MEDS: DOCUSATE SODIUM 50 MG/SENNA 8.6 MG TAB PO PRN (16:35)
[2016-11-14 22:15] LABS: HEMATOCRIT 29.5 % (35.0-46.0)
[2016-11-14 22:22] LABS: REVIEW FLAG FINAL
[2016-11-15] MEDS: ACETAMINOPHEN/HYDROcodone 325 MG/5 MG TAB PO PRN (07:19)
[2016-11-15] MEDS: IBUPROFEN 600 MG TAB PO PRN ×2 (07:20→18:26)
--- NOTE | 2016-11-15 07:42 | HHI.OB ---
Subjective Post Operative Day: 2 Remarks POD2 for scheduled repeat c/s. Pain still significant at incision site. Tolerated Percocet well without hives, tachypnea, anaphylaxis- will be taken off of her allergy list. Eating, voiding, stooling, ambulating w/o difficulty. Encouraged OOB. Intends to both formula feed and suppliment with breast milk. Requesting Depo shot. Denies fevers/chills, SOB/chest pain, calf pain. Asymptomatic with anemia- denies syncope, SOB, changes in vision with standing, or palpitations. Discussed starting iron pills and need to continue as outpatient. Objective Vitals/I&O Vital Signs Date Time Temp Pulse Resp B/P Pulse Ox O2 Delivery O2 Flow Rate FiO2 11/14/16 16:36 98.3 81 18 119/69 11/14/16 15:09 98.8 95 18 106/73 11/14/16 14:23 75 106/59 11/14/16 13:53 98.9 76 16 114/75 11/14/16 13:40 98.3 74 16 112/66 11/14/16 11:44 98.4 90 16 105/55 11/14/16 10:36 98.9 77 16 128/67 11/14/16 10:03 99.2 11/14/16 09:55 98.9 100 16 107/53 11/14/16 09:50 98.4 68 16 114/66 Result Diagram: 11/14/162207 Objective Remarks GENERAL: Adult AA female in NAD. Appears tired. HEENT: PERRL. MMM. CV: RRR, without murmurs. RESP: Breathing well on RA. Lungs CTAB. GI: Soft, NTTP. Incision: Clean, dry and intac Fundus: Firm, non-tender inferior to umbilicus. : Moderate bleeding. Stable 1 cm benign appearing scar tissue L external labia. BACK: Nontender without obvious deformity NEURO: Motor and sensory grossly within normal limits PSYCH: Affect flat. Minimally verbal (Tired vs post blues?) Medications and IVs Current Medications Medications (Trade) Dose Ordered Sig/Clyde Route Start Time Stop Time Status Last Admin (NS Flush) 2 ml BID IV 11/13/16 21:00 (NS Flush) 2 ml UNSCH PRN IV 11/13/16 11:45 11/14/16 07:24 (Mylicon Chew) 80 mg QID PRN PO 11/13/16 11:45 (Motrin) 600 mg Q6H PRN PO 11/14/16 11:45 11/15/16 07:20 (Sarah-Colace) 2 tab Q12H PRN PO 11/13/16 11:45 11/14/16 16:35 (Zofran Inj) 4 mg Q6H PRN IV PUSH 11/13/16 11:45 11/13/16 17:30 (Percocet 5-325 Mg) 1 tab Q4H PRN PO 11/14/16 08:15 ([place] 5-325 Mg) 1 tab Q4H PRN PO 11/14/16 08:30 11/15/16 07:19 (Ferrous Sulfate) 325 mg BID@12,17 PO 11/14/16 12:00 11/14/16 16:35 Assessment/Plan Problem List: (1) Intrauterine (2) Delivery by elective section (3) History of alcoholism (4) Hx MRSA infection (5) Allergy to opioid analgesic Assessment and Plan POD2: 21y @39/1 presenting for scheduled repeat c/s, found in active labor with SROM. 1. Delivery by elective section, hx -Continue routine care -Motrin and Percocet PRN pain. Miralax for Bowel Reg. PRN Benadryl and PRN Zofran on board. -Encouraged OOB. Advised pelvic rest for 6 wks -Follow up OB appointment in 1 week with [facility] -Feeding via formula feeding and breastmilk supplementation. Appreciate consultant in ergonomics and safety assistance 11/14. -Mom blood type O+, Rhogam not indicated -RPR non-reactive -Pt requesting Depo for control- order placed 2. Microcytic Anemia -Microcytic anemia on admission, decreased <7 s/p -s/p 2 units: H/H 9.630, continue monitor -Start ferrous sulfate 325mg BID, continue at discharge -Pt counselled that normal s/e turn stool ivan color and cause mild constipation. Treat constipation with daily Miralax, PRN. Recommend outpatient follow up with rpt CBC in 3 months and further outpt testing 3. Hx MRSA infection 2008 -Multiple negative nasal swabs after event- no contact precautions required 4. Hx alcoholism with isolated alcohol-withdrawal seizure (2014) -Quit 2016, no repeat seizures, no maintenance medications, low suspicion for risk of withdrawal seizure 5. Reported allergy to opioid analgesic Tolerated [place] w/o difficulty- remove from allergy list -Change from [place] to Percocet for improved pain control DW: Dr Ga, Dr. Jeannie Hampton Discharge Planning POD1. 1-2 days pending VSS and control. Likely tomorrow. Lety Perez MD R1 Nov 15, 2016 07:42
[2016-11-15] MEDS ORDERED: medroxyPROGESTERone ACETATE SUSP 150 MG/ML SYRINGE IM SCH (07:45)
[2016-11-15] MEDS ORDERED: oxyCODONE/ACETAMINOPHEN 5 MG/325 MG TAB PO PRN (07:45)
[2016-11-15] MEDS: oxyCODONE/ACETAMINOPHEN 5 MG/325 MG TAB PO PRN ×2 (11:44→18:25)
[2016-11-15] MEDS: FERROUS SULFATE 325 MG (65 MG ELEMENTAL IRON) TAB PO SCH (11:44)
[2016-11-16 04:37] LABS: HEMATOCRIT 26.3 % (35.0-46.0); MEAN CELL VOLUME 67.7 FL (80.0-100.0); MEAN CORPUSCULAR HEMOGLOBIN 21.1 PG (27.0-34.0); MEAN CORPUSCULAR HGB CONC 31.2 % (32.0-36.0); PLATELET COUNT 186 TH/MM3 (150-450); RED BLOOD COUNT 3.89 MIL/MM3 (4.00-5.30); RED CELL DISTRIBUTION WIDTH 22.4 % (11.6-17.2); WHITE BLOOD COUNT 10.7 TH/MM3 (4.0-11.0)
[2016-11-16 04:39] LABS: REVIEW FLAG FINAL
[2016-11-16] MEDS: DOCUSATE SODIUM 50 MG/SENNA 8.6 MG TAB PO PRN (04:50)
[2016-11-16] MEDS: IBUPROFEN 600 MG TAB PO PRN ×2 (04:50→10:58)
[2016-11-16] MEDS: oxyCODONE/ACETAMINOPHEN 5 MG/325 MG TAB PO PRN ×2 (04:51→10:58)
--- NOTE | 2016-11-16 08:24 | HHI.OB ---
Subjective Post Operative Day: 3 Remarks 21 year old female s/p POD3. AFVSS. Patient reports she is feeling well. Bleeding is decreasing and pain is well-controlled. She is bottle feeding and bonding well with baby. Ambulating without difficulties. She is tolerating a diet without nausea or vomiting. Denies chest pain, shortness of breath, or calf pain. She has been passing gas, having BMs, and urinating without difficulty. ( Jean Paul Duran MD R2) Remarks Agree with above plan (Monica Sevilla MD) Objective Result Diagram: 11/16/16356 Objective Remarks GENERAL: Adult AA female in NAD. Appears tired. HEENT: PERRL. MMM. CV: RRR, without murmurs. RESP: Breathing well on RA. Lungs CTAB. GI: Soft, NTTP. Incision: Clean, dry and intact, christiano in place. Fundus: Firm, non-tender inferior to umbilicus. : Moderate bleeding. Stable 1 cm benign appearing scar tissue L external labia. BACK: Nontender without obvious deformity NEURO: Motor and sensory grossly within normal limits PSYCH: Affect flat. Minimally verbal (Tired vs post blues?) Medications and IVs Current Medications Medications (Trade) Dose Ordered Sig/Clyde Route Start Time Stop Time Status Last Admin (NS Flush) 2 ml BID IV 11/13/16 21:00 (NS Flush) 2 ml UNSCH PRN IV 11/13/16 11:45 11/14/16 07:24 (Mylicon Chew) 80 mg QID PRN PO 11/13/16 11:45 11/15/16 14:44 (Motrin) 600 mg Q6H PRN PO 11/14/16 11:45 11/16/16 04:50 (Sarah-Colace) 2 tab Q12H PRN PO 11/13/16 11:45 11/16/16 04:50 (Zofran Inj) 4 mg Q6H PRN IV PUSH 11/13/16 11:45 11/13/16 17:30 (Ferrous Sulfate) 325 mg BID@12,17 PO 11/14/16 12:00 11/15/16 11:44 (Percocet 5-325 Mg) 1 tab Q4H PRN PO 11/15/16 07:45 11/16/16 04:51 (Percocet 5-325 Mg) 2 tab Q4H PRN PO 11/15/16 07:45 (Jean Paul Duran MD R2) Assessment/Plan Problem List: (1) Intrauterine (2) Delivery by elective section (3) History of alcoholism (4) Hx MRSA infection (5) Allergy to opioid analgesic Assessment and Plan POD3: 21y @39/1 presenting for scheduled repeat c/s, found in active labor with SROM. 1. Delivery by elective section, hx -Continue routine care -Motrin and Percocet PRN pain. Miralax for Bowel Reg. PRN Benadryl and PRN Zofran on board. -Encouraged OOB. Advised pelvic rest for 6 wks -Follow up OB appointment in 1 week with [facility] -Feeding via formula feeding and breastmilk supplementation. Appreciate marine consultant assistance 11/14. -Mom blood type O+, Rhogam not indicated -RPR non-reactive -Pt requesting Depo for control- order placed 2. Microcytic Anemia -Microcytic anemia on admission, decreased <7 s/p -s/p 2 units: H/H 9.6/30, continue monitor. Today 11/16/16 - Hgb was 8.2/26.3, which is her baseline prior to the C/section. -Start ferrous sulfate 325mg BID, continue at discharge -Pt counselled that normal s/e turn stool ivan color and cause mild constipation. Treat constipation with daily Miralax, PRN. Recommend outpatient follow up with rpt CBC in 3 months and further outpt testing 3. Hx MRSA infection 2008 -Multiple negative nasal swabs after event- no contact precautions required 4. Hx alcoholism with isolated alcohol-withdrawal seizure (2014) -Quit 2016, no repeat seizures, no maintenance medications, low suspicion for risk of withdrawal seizure 5. Reported allergy to opioid analgesic Tolerated [place] w/o difficulty- remove from allergy list -Change from [place] to Percocet for improved pain control DW: Dr. Sevilla. Discharge Planning POD3. D/c today 11/16/2016. (Jean Paul Duran MD R2) Jean Paul Duran MD R2 Nov 16, 2016 08:24 Monica Sevilla MD Nov 16, 2016 08:35
--- NOTE | 2016-11-16 08:25 | HHI.DCPOC ---
Discharge Care Plan Diagnosis: (1) delivery delivered Report Symptoms to Your Doctor -Temperate above 100.5 degrees -Redness, of incision or excessive or foul smelling drainage -Unusual pain or calf pain -Increased vaginal bleeding -Painful or difficulty urinating -Feelings of extreme sadness or anxiety after 2 weeks Goals to Promote Your Health * To prevent worsening of your condition and complications * To maintain your health at the optimal level Directions to Meet Your Goals Take your medications as prescribed Follow your dietary instruction Follow activity as directed Ensure plenty of rest for recovery Drink fluids for hydration Keep your appointments as scheduled Take your immunizations and boosters as scheduled If your symptoms worsen call your PCP, if no PCP go to Urgent Care Center or Emergency Room Smoking is Dangerous to Your Health. Avoid second hand smoke Call the 24-hour crisis hotline for domestic abuse at Jean Paul Duran MD R2 Nov 16, 2016 08:25
[2016-11-16] MEDS ORDERED: FERR325T PO (08:26)
[2016-11-16] MEDS ORDERED: IBUP-232 PO (08:26)
[2016-11-16] MEDS ORDERED: OXYC1TAB63 PO (08:26)
[2016-11-16] MEDS: FERROUS SULFATE 325 MG (65 MG ELEMENTAL IRON) TAB PO SCH ×2 (10:58→16:58)
== END 2016-11-16 18:17 | disposition home or self-care (01) | DRG 766 ==
LOC: H2EB 11-13 07:54 → H1EA 11-13 14:40 → HNUR 11-15 23:03 → H1EA 11-16 03:32
PROVIDERS: ADMIT Obstetrics & Gynecology; ATTEND Obstetrics & Gynecology
PROC: 10D00Z1 Extraction of Products of Conception, Low, Open Approach (ICD-10-PCS; principal; 2016-11-13)
PROC: 30233N1 Transfusion of Nonautologous Red Blood Cells into Peripheral Vein, Percutaneous Approach (ICD-10-PCS; 2016-11-14)
DX: O34.211 Maternal care for low transverse scar from previous cesarean delivery (principal); D50.9 Iron deficiency anemia, unspecified; K59.00 Constipation, unspecified; O99.02 Anemia complicating childbirth; F10.21 Alcohol dependence, in remission; O42.92 Full-term premature rupture of membranes, unspecified as to length of time between rupture and onset of labor; Z86.14 Personal history of Methicillin resistant Staphylococcus aureus infection; Z88.5 Allergy status to narcotic agent; Z3A.39 39 weeks gestation of pregnancy; Z37.0 Single live birth
CPT/HCPCS: 36430; 81001; 85014; 85018; 85025; 85027; 86850; 86900; 86901; 86920; J0690; J1050; J1885; J2250; J2274; J2405; J2590; J7120; P9016

== ENCOUNTER 2017-06-21 16:29 | Emergency (ER) | payer SELFPAY ==
[~2017-06-21] VITALS: Ht 160 cm; Wt 71.0 kg
[~2017-06-21 16:29] MED LIST changes: +FERR325T PO; +IBUP-232 PO; -MACR100C PO; -MACR100C2 PO; -METR-1 PO; +OXYC1TAB63 PO
[2017-06-21 16:49] VITALS: BP 128/77; PULSE 94; RESP 20; TEMP 98.7; O2SAT 100
[2017-06-21 18:59] VITALS: TEMP 99.3
[2017-06-21] MEDS ORDERED: SODIUM CHLOR 0.9% 1000 ML INJ 1,000 ML IV SCH (19:06)
[2017-06-21] MEDS ORDERED: KETOROLAC TROMETHAMINE 30 MG/ML (IVP) VIAL IV PUSH ONE (19:15)
--- NOTE | 2017-06-21 19:40 | RADRPT ---
EXAM DATE/TIME: 06/21/2017 19:17 [place] COMPARISON: No previous studies available for comparison. INDICATIONS : Cough, shortness of breath, and generalized weakness. MEDICAL HISTORY : None. SURGICAL HISTORY : None. ENCOUNTER: Initial ACUITY: 2 weeks PAIN SCORE: 2/10 LOCATION: chest FINDINGS: A single view of the chest demonstrates the lungs to be symmetrically aerated without evidence of mas s, infiltrate or effusion. The cardiomediastinal contours are unremarkable. Osseous structures are intact. CONCLUSION: No acute disease. There is no evidence of pneumonia. James Villanueva MD on June 21, 2017 at 19:38 Board Certified Radiologist. This report was verified electronically.
--- NOTE | 2017-06-21 19:56 | PD ---
HPI Chief Complaint: Dizziness Time Seen by Provider: 18:45 Travel History International Travel<30 days: No Contact w/Intl Traveler<30days: No Traveled to known affect area: No History of Present Illness HPI 22-year-old female that presents to the ED for evaluation of chills, sweats and body aches. Per patient she's had this for about 2 days. Per patient he got worse today. Per patient the body aches all over. She states that she has some congestion and cough. Patient states that she has small children at home that are sick. She has not noted a fever. Has not taken anything for this. Denies any nausea or vomiting. No bowel movement issues. No vaginal discharge. Denies positive . Denies any chest pain or shortness of breath. Per patient the cough is productive. No recent travel. No allergies to medication. No other medical issues reported today. Per patient the discomfort is 5 out of 10. In regards to her dizziness which was the initial complaint she states that she feels weak and not really dizzy. Patient also reports that she has some "bites" to her right arm and her right abdomen. Per patient and her painful and itchy. She states that she has a history of MRSA and she is concerned about his be MRSA again. PFSH Past Medical History Anxiety: Yes Developmental Delay: No Diminished Hearing: No Immunizations Current: Yes ?: Unknown LMP: irregular : 2 Para: 2 Miscarriage: 0 : 0 Past Surgical History Section: Yes (x2) Social History Alcohol Use: Yes (OCC/hx alcohol, quit 2015 w/o formal support group, pt minimizes this dx) Tobacco Use: No Substance Use: No Allergies-Medications (Allergen,Severity, Reaction): Coded Allergies: *MDRO Multi-Drug Resistant Organism (Verified Adverse Reaction, Unknown, ) MRSA arm wound 2008. MRSA PCR screen negative 12/27/14 and 12/29/14. Cleared per infection control Reported Meds & Prescriptions Reported Meds & Active Scripts Active No Active Prescriptions or Reported Medications Review of Systems Except as stated in HPI: all other systems reviewed are Neg Physical Exam Narrative GENERAL: Well-nourished, well-developed patient in no apparent distress. SKIN: Warm and dry. Patient has a blisterlike lesion on the right forearm as well as the right abdomen. Mild purulence noted. Pruritic and painful. Does not follow a dermatome. No lymphadenopathy noted. HEAD: Atraumatic. Normocephalic. EYES: Pupils equal and round reactive to light and accommodation. No scleral icterus. No injection or drainage. ENT: No nasal bleeding or discharge. Mucous membranes pink and moist. TMs are clear with no sign of infection or perforation. No mastoid tenderness. Ear canals are intact bilaterally. No lymphadenopathy. Nostril mucosa is red and moist with clear mucus noted. No sinus tenderness to palpation noted. Tonsils are not enlarged or swollen. No ulvua Deviation. Tongue is midline. NECK: Trachea midline. No JVD. No meningeal signs noted CARDIOVASCULAR: Regular rate and rhythm. RESPIRATORY: No accessory muscle use. Clear to auscultation. Breath sounds equal bilaterally. GASTROINTESTINAL: Abdomen soft, non-tender, nondistended. Hepatic and splenic margins not palpable. MUSCULOSKELETAL: Extremities without clubbing, cyanosis, or edema. No obvious deformities. Full range of motion of the upper and lower extremities bilaterally. 2+ pulses bilaterally. NEUROLOGICAL: Awake and alert. No obvious cranial nerve deficits. Motor grossly within normal limits. Five out of 5 muscle strength in the arms and legs. Normal speech. PSYCHIATRIC: Appropriate mood and affect; insight and judgment normal. Data Data Last Documented VS Vital Signs Date Time Temp Pulse Resp B/P (MAP) Pulse Ox O2 Delivery O2 Flow Rate FiO2 06/21/17 20:49 82 16 114/67 (83) 100 Room Air 06/21/17 18:59 99.3 Orders Orders Complete Blood Count With Diff (06/21/17 19:06) Basic Metabolic Panel (Bmp) (06/21/17 19:06) Blood Culture (06/21/17 19:06) Urinalysis - C+S If Indicated (06/21/17 19:06) Magnesium (Mg) (06/21/17 19:06) Thyroid Stimulating Hormone (06/21/17 19:06) Group A Rapid Strep Screen (06/21/17 19:06) Influenzae A/B Antigen (06/21/17 19:06) Chest, Single Ap (06/21/17 19:06) Iv Access Insert/Monitor (06/21/17 19:06) Ed Urine Pregnancytest Poc (06/21/17 19:06) Ketorolac Inj (Toradol Inj) (06/21/17 19:15) Sodium Chlor 0.9% 1000 Ml Inj (Ns 1000 M (06/21/17 19:06) Strep Culture (Group A) (06/21/17 19:44) Urine Culture (06/21/17 21:00) Labs Laboratory Tests Test 06/21/17 19:44 06/21/17 20:50 06/21/17 21:00 Blood Urea Nitrogen 12 MG/DL Creatinine 0.73 MG/DL Random Glucose 71 MG/DL Calcium Level 8.9 MG/DL Magnesium Level 2.1 MG/DL Sodium Level 136 MEQ/L Potassium Level 4.2 MEQ/L Chloride Level 102 MEQ/L Carbon Dioxide Level 26.4 MEQ/L Anion Gap 8 MEQ/L Estimat Glomerular Filtration Rate 120 ML/MIN Thyroid Stimulating Hormone 3rd Gen 0.352 uIU/ML White Blood Count 6.7 TH/MM3 Red Blood Count 4.16 MIL/MM3 Hemoglobin 11.3 GM/DL Hematocrit 35.0 % Mean Corpuscular Volume 84.2 FL Mean Corpuscular Hemoglobin 27.3 PG Mean Corpuscular Hemoglobin Concent 32.4 % Red Cell Distribution Width 13.2 % Platelet Count 255 TH/MM3 Mean Platelet Volume 7.6 FL Neutrophils (%) (Auto) 36.7 % Lymphocytes (%) (Auto) 48.4 % Monocytes (%) (Auto) 10.0 % Eosinophils (%) (Auto) 4.3 % Basophils (%) (Auto) 0.6 % Neutrophils # (Auto) 2.4 TH/MM3 Lymphocytes # (Auto) 3.2 TH/MM3 Monocytes # (Auto) 0.7 TH/MM3 Eosinophils # (Auto) 0.3 TH/MM3 Basophils # (Auto) 0.0 TH/MM3 CBC Comment DIFF FINAL Differential Comment Urine Color YELLOW Urine Turbidity HAZY Urine pH 6.0 Urine Specific Erin 1.025 Urine Protein TRACE mg/dL Urine Glucose (UA) NEG mg/dL Urine Ketones NEG mg/dL Urine Occult Blood TRACE Urine Nitrite NEG Urine Bilirubin NEG Urine Urobilinogen LESS THAN 2.0 MG/DL Urine Leukocyte Esterase SMALL Urine RBC 1 /hpf Urine WBC 7 /hpf Urine Squamous Epithelial Cells <1 /hpf Urine Bacteria MANY /hpf Urine Mucus FEW /lpf Microscopic Urinalysis Comment CULTURE INDICATED MDM Medical Decision Making Medical Screen Exam Complete: Yes Emergency Medical Condition: Yes Medical Record Reviewed: Yes Interpretation(s) Last Impressions Chest X-Ray 06/21/17 500 Signed Impressions: Service Date/Time: Wednesday, June 21, 2017 19:17 - CONCLUSION: No acute disease. There is no evidence of pneumonia. James Villanueva MD CBC & BMP Diagram 06/21/17 19:44 Calcium Level 8.9, Magnesium Level 2.1 06/21/17 20:50 UA shows UTI strep and influenza negative Differential Diagnosis Sepsis versus pustule versus influenza versus insect bite versus viral illness versus pneumonia versus congestion versus URI Narrative Course 22-year-old female that presents to the ED for evaluation of bodyaches, chills, sweats. Patient was properly examined and was found to have signs and symptoms of unclear etiology but likely viral illness. Flu test as well as labs were ordered. In regards to her skin lesions this appears to be likely staph infection. We'll treat with antibiotics for this. Patient was given IV fluids and Toradol. Labs showed UTI other was unremarkable. Patient was reassured. At this time I believe the patient likely has a viral illness or possibly been symptomatic from the UTI. Patient will be treated for this with Bactrim. This should cover her skin infection as well. This is why she was given 10 days instead of 5. She was given a perception for diclofenac sodium for her body aches to help with her fever as well. She was told to follow closely with PCP. See ED worsening symptoms. Diagnosis Primary Impression: UTI (lower urinary tract infection) Additional Impression: Skin infection Patient Instructions: General Instructions Additional Instructions: Take medications as prescribed. Follow with PCP. See ED worsening symptoms. Med/Other Pt SpecificInfo: Prescription(s) given Scripts Diclofenac Sodium (Diclofenac Sodium DR) 75 Mg Tabdr 75 MG PO BID, #20 TAB 0 Refills Prov: Jeffrey Rosa MD 06/21/17 Sulfamethoxazole-Trimethoprim (Bactrim DS) 800-160 Mg Tab 1 TAB PO BID for Infection for 10 Days, #20 TAB 0 Refills Prov: Jeffrey Rosa MD 06/21/17 Disposition: 01 DISCHARGE HOME Condition: Stable Matthew Chakraborty Jun 21, 2017 19:56
[2017-06-21 20:18] LABS: BICARBONATE 26.4 MEQ/L (21.0-32.0); MAGNESIUM 2.1 MG/DL (1.5-2.5); POTASSIUM 4.2 MEQ/L (3.5-5.1)
[2017-06-21 20:49] VITALS: BP 114/67; PULSE 82; RESP 16; O2SAT 100
[2017-06-21 21:34] LABS: AUTOMATED NEUTROPHIL # 2.4 TH/MM3 (1.8-7.7); BASOPHIL % 0.6 % (0.0-2.0); EOSINOPHIL # 0.3 TH/MM3 (0-0.4); EOSINOPHIL % 4.3 % (0.0-4.0); HEMO FLAGS DIFF FINAL; LYMPH % 48.4 % (9.0-44.0); LYMPHOCYTE # 3.2 TH/MM3 (1.0-4.8); MEAN CELL VOLUME 84.2 FL (80.0-100.0); MEAN CORPUSCULAR HEMOGLOBIN 27.3 PG (27.0-34.0); MEAN CORPUSCULAR HGB CONC 32.4 % (32.0-36.0); NEUT % 36.7 % (16.0-70.0); PLATELET COUNT 255 TH/MM3 (150-450); RED BLOOD COUNT 4.16 MIL/MM3 (4.00-5.30); RED CELL DISTRIBUTION WIDTH 13.2 % (11.6-17.2); WHITE BLOOD COUNT 6.7 TH/MM3 (4.0-11.0)
[2017-06-21 21:39] LABS: BACTERIA, URINE MANY /hpf; BLOOD, URINE TRACE (NEG); COMMENT (UR) CULTURE INDICATED; CULTURE IF INDICATED CULTURE INDICATED; GLUCOSE,URINE NEG (NEG); KETONE, URINE NEG (NEG); MUCUS URINE FEW /lpf (OCC); NITRITE,URINE NEG (NEG); SQUAMOUS EPITHELIAL CELL URINE <1 /hpf (0-5); URINE COLOR YELLOW (YELLW/STRAW)
[2017-06-21] MEDS ORDERED: DICL75TA PO (22:00)
[2017-06-21] MEDS ORDERED: BACT800T5 PO (22:00)
== END 2017-06-21 23:23 | disposition home or self-care (01) ==
LOC: NEPE 16:29
DX: N39.0 Urinary tract infection, site not specified (principal); L08.9 Local infection of the skin and subcutaneous tissue, unspecified; B96.1 Klebsiella pneumoniae [K. pneumoniae] as the cause of diseases classified elsewhere; R05 Cough
CPT/HCPCS: 71010; 80048; 81001; 83735; 84443; 84703; 85025; 87040; 87077; 87081; 87086; 87186; 87804; 87880; 96361; 96374; 99284; J1885; J7030

== ENCOUNTER 2017-08-19 14:19 | Emergency (ER) | payer SELFPAY ==
[~2017-08-19] VITALS: Ht 160 cm; Wt 66.0 kg
[~2017-08-19 14:19] MED LIST changes: +BACT800T5 PO; +DICL75TA PO; -FERR325T PO; -IBUP-232 PO; -OXYC1TAB63 PO
[2017-08-19 14:21] VITALS: BP 123/69; PULSE 72; RESP 16; TEMP 99.7; O2SAT 99
--- NOTE | 2017-08-19 14:56 | PD ---
HPI Chief Complaint: Bite or Sting Time Seen by Provider: 14:54 Travel History International Travel<30 days: No Contact w/Intl Traveler<30days: No Traveled to known affect area: No History of Present Illness HPI 22-year-old female resents emergency department with questionable insect bite to the left dorsal index finger on Friday with increasing erythema swelling and pain. Patient has streaking up the right dorsal forearm. Patient denies fever or chills. Patient states pain is currently 8 out of 10. There is been no spontaneous drainage. Patient has previous history of MRSA. Patient has no known drug allergies. PFSH Past Medical History Anxiety: Yes Developmental Delay: No Diminished Hearing: No Immunizations Current: Yes ?: Not LMP: 07/2017 : 2 Para: 2 Miscarriage: 0 : 0 Past Surgical History Section: Yes (x2) Social History Alcohol Use: Yes (OCC/hx alcohol, quit 2015 w/o formal support group, pt minimizes this dx) Tobacco Use: No Substance Use: No Allergies-Medications (Allergen,Severity, Reaction): Coded Allergies: *MDRO Multi-Drug Resistant Organism (Verified Adverse Reaction, Unknown, 08/19/17) MRSA arm wound 2008. MRSA PCR screen negative 12/27/14 and 12/29/14. Cleared per infection control Reported Meds & Prescriptions Reported Meds & Active Scripts Active Keflex (Cephalexin) 500 Mg Cap 500 Mg PO Q8H 7 Days Ibuprofen 600 Mg Tab 600 Mg PO Q6H PRN Bactrim DS (Sulfamethoxazole-Trimethoprim) 800-160 Mg Tab 1 Tab PO BID Review of Systems General / Constitutional: No: Fever Eyes: No: Visual changes HENT: No: Headaches Cardiovascular: No: Chest Pain or Discomfort Respiratory: No: Shortness of Breath Gastrointestinal: No: Abdominal Pain Genitourinary: No: Dysuria Musculoskeletal: No: Pain Skin: Positive Lesions (see history present illness.), No Rash Neurologic: No: Weakness Psychiatric: No: Depression Endocrine: No: Polydipsia Hematologic/Lymphatic: No: Easy Bruising Physical Exam Narrative GENERAL: Patient appears in no acute distress. SKIN: Warm and dry. Normal color. Normal turgor. Patient has erythematous indurated region at the bases with left index finger with pointing. There is erythematous streaking along the dorsal hand with tenderness. HEAD: Atraumatic. Normocephalic. EYES: Pupils equal and round. No scleral icterus. No injection or drainage. ENT: No nasal bleeding or discharge. Mucous membranes pink and moist. NECK: Trachea midline. No JVD. CARDIOVASCULAR: Regular rate and rhythm. RESPIRATORY: No accessory muscle use. Clear to auscultation. Breath sounds equal bilaterally. GASTROINTESTINAL: Abdomen soft, non-tender, nondistended. Hepatic and splenic margins not palpable. MUSCULOSKELETAL: Extremities without clubbing, cyanosis, or edema. No obvious deformities. NEUROLOGICAL: Awake and alert. No obvious cranial nerve deficits. Motor grossly within normal limits. Five out of 5 muscle strength in the arms and legs. Normal speech. PSYCHIATRIC: Appropriate mood and affect; insight and judgment normal. Data Data Last Documented VS Vital Signs Date Time Temp Pulse Resp B/P (MAP) Pulse Ox O2 Delivery O2 Flow Rate FiO2 08/19/17 14:21 99.7 72 16 123/69 (87) 99 Room Air Orders Orders Lidocai-Epi 1%-1:100,000 Inj (Xylocaine- (08/19/17 15:00) Sulfamet-Trimeth Ds 800-160 Mg (Bactrim (08/19/17 15:00) Cephalexin (Keflex) (08/19/17 15:00) Wound Culture And Gram Stain (08/19/17 15:00) [facility] Medical Decision Making Medical Screen Exam Complete: Yes Emergency Medical Condition: Yes Differential Diagnosis Left finger abscess. Left finger cellulitis. MRSA. Narrative Course I&D of abscess performed with dressing placed. Patient is continued on Keflex and Bactrim 1 week. Patient given ibuprofen 600 mg up to 4 times a day #40. Wound care was discussed. Patient follow up if symptoms are not improving the next several days. Wound culture was sent to the lab. Procedures Procedure Narrative After the risks and benefits were discussed the following procedure was performed: INCISION AND DRAINAGE OF ABSCESS: The area was prepped and was sterilely draped. Digital block of 1% Xylocaine with epi with a total number 2.5 mL was used to anesthetize the area. The area was properly anesthetized. A number 11 scalpel was used to make a 0.5-cm incision across the area of the abscess. Cultures were obtained. The abscess was drained an irrigated with normal saline. Sterile dressing applied. Wound instructions given to the patient. Diagnosis Primary Impression: Abscess of left index finger Additional Instructions: I&D of abscess performed with dressing placed. Patient is continued on Keflex and Bactrim 1 week. Patient given ibuprofen 600 mg up to 4 times a day #40. Wound care was discussed. Patient follow up if symptoms are not improving the next several days. Wound culture was sent to the lab. Scripts Cephalexin (Keflex) 500 Mg Cap 500 MG PO Q8H for Infection for 7 Days, #21 CAP 0 Refills Prov: Brandan Roque MD 08/19/17 Ibuprofen (Ibuprofen) 600 Mg Tab 600 MG PO Q6H Y for Pain/Inflammation, #40 TAB 0 Refills Prov: Brandan Roque MD 08/19/17 Sulfamethoxazole-Trimethoprim (Bactrim DS) 800-160 Mg Tab 1 TAB PO BID for Infection, #14 TAB 0 Refills Prov: Brandan Roque MD 08/19/17 Disposition: 01 DISCHARGE HOME Condition: Stable Ole Ni Aug 19, 2017 14:56
[2017-08-19] MEDS ORDERED: CEPHALEXIN MONOHYDRATE 500 MG CAP PO ONE (15:00)
[2017-08-19] MEDS ORDERED: LIDOCAINE 1%/EPINEPHrine 1:100,000 SOLN 20 ML VIAL INFIL ONE (15:00)
[2017-08-19] MEDS ORDERED: SULFAMETHOXAZOLE-TRIMETHOPRIM DS 800-160 MG TAB PO ONE (15:00)
[2017-08-19] MEDS ORDERED: IBUP-232 PO (15:38)
[2017-08-19] MEDS ORDERED: BACT800T5 PO (15:38)
[2017-08-19] MEDS ORDERED: CEPH-460 PO (15:38)
== END 2017-08-19 16:44 | disposition home or self-care (01) ==
LOC: NEPD 14:19
DX: L02.512 Cutaneous abscess of left hand (principal); A49.02 Methicillin resistant Staphylococcus aureus infection, unspecified site; F41.9 Anxiety disorder, unspecified
CPT/HCPCS: 10060; 86403; 87070; 87186; 87205